=== PATIENT | female | born 1985 | race Caucasian/White ===

== ENCOUNTER 2018-12-05 18:12 | Emergency (ER) | payer MEDICAID, OTHER ==
[~2018-12-05] VITALS: Ht 165.1 cm; Wt 75.7 kg
[2018-12-05 18:35] VITALS: BP 132/70
--- NOTE | 2018-12-05 19:00 | NUR ---
Patient discharged to home in stable condition. Rx and Written and verbal after care instructions given. Patient verbalizes understanding of instruction. Translation done by family per pt request.
== END 2018-12-05 19:31 | disposition home or self-care (01) ==
LOC: ER 18:17
DX: L02.811 Cutaneous abscess of head [any part, except face] (principal); Z90.710 Acquired absence of both cervix and uterus; Z98.890 Other specified postprocedural states

== ENCOUNTER 2019-08-12 12:54 | Emergency (ER) | payer SELFPAY ==
[~2019-08-12] VITALS: Ht 165.1 cm; Wt 77.1 kg
[2019-08-12 13:02] VITALS: BP 137/71
--- NOTE | 2019-08-12 13:50 | NUR ---
strep swab sent
== END 2019-08-12 14:28 | disposition home or self-care (01) ==
LOC: ER 12:58
DX: J06.9 Acute upper respiratory infection, unspecified (principal); J03.90 Acute tonsillitis, unspecified; B95.0 Streptococcus, group A, as the cause of diseases classified elsewhere; Z90.710 Acquired absence of both cervix and uterus; Z98.890 Other specified postprocedural states
CPT/HCPCS: 71045-TC; 86403-TC; 87070-TC